=== PATIENT | male | born 1955 ===

== ENCOUNTER 2025-07-07 06:18 | Day surgery (SDC) | payer OTHER, SELFPAY | END 2025-07-07 12:15 | disposition home or self-care (01) | LOC: GI 06:18 | PROVIDERS: ATTENDING PHYSICIAN Specialist | DX: Z12.11 Encounter for screening for malignant neoplasm of colon (principal); K63.5 Polyp of colon; K62.1 Rectal polyp; Z86.0101 Personal history of adenomatous and serrated colon polyps | CPT/HCPCS: 45380; 88305 ==